=== PATIENT | female | born 1995 | race Asian ===

== ENCOUNTER 2019-04-12 11:36 | Emergency (ER) | payer OTHER ==
[~2019-04-12] VITALS: Ht 160 cm; Wt 56.7 kg
[2019-04-12 12:09] LABS: ABSOLUTE NEUTROPHILS 5.6 thou/uL (1.4-8.2); BASOPHILS 0.8 % (0.0-2.0); EOSINOPHILS 2.3 % (0.0-3.0); HEMATOCRIT 43.4 % (37.0-47.0); HEMOGLOBIN 14.9 gm/dL (12.0-15.0); LYMPHOCYTES 20.7 % (24.0-44.0); MCH 30.6 pg (26.0-34.0); MCHC 34.3 g/dL (28.0-37.0); MCV 89.2 fL (80.0-100.0); MONOCYTES 5.3 % (1.0-8.0); PLATELET COUNT 220 thou/uL (150-400); POLYS 70.9 % (36.0-66.0); RBC 4.87 mil/uL (4.20-5.00); RDW 12.5 % (10.5-14.5); WBC 7.9 thou/uL (4.0-11.0)
[2019-04-12 12:24] LABS: ANION GAP 9 mmol/L (7-16); BUN 12 mg/dL (7-18); CALCIUM 9.1 mg/dL (8.5-10.1); CHLORIDE 103 mmol/L (98-107); CO2 27 mmol/L (21-32); CREATININE 0.8 mg/dL (0.6-1.0); GLUCOSE 103 mg/dL (74-106); POTASSIUM 3.7 mmol/L (3.5-5.1); SODIUM 139 mmol/L (136-145)
[2019-04-12 12:29] LABS: SGOT 31 U/L (15-37); SGPT 22 U/L (30-65); TOTAL BILIRUBIN 0.6 mg/dL (<0.1-1.0); TOTAL PROTEIN 8.2 g/dL (6.4-8.2); TROPONIN-I <0.06 ng/mL (<0.06)
[2019-04-12 14:44] VITALS: BP 129/93
--- NOTE | 2019-04-13 08:39 | EKG ---
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1995 Requested By: Ina Madison Order Number: [id number] MD: Balaji Curran Measurements Intervals [place] Rate: 82 P: 49 TX: 135 QRS: 79 QRSD: 81 T: -1 QT: 365 QTc: 427 Interpretive Statements Sinus rhythm Normal tracing No previous ECG available for comparison Electronically Signed On 04-13-2019 8:39:47 CDT by Balaji Curran [email or web address] ��������������������������������������������� <ELECTRONICALLY SIGNED> ���������������������������������������� By: Balaji Curran MD, [facility] ��������������������������������������������� 04/13/19 0839 1152 1152 Balaji Curran MD, FACC /EPI
== END 2019-04-12 14:44 | disposition home or self-care (01) ==
LOC: ER 11:36
PROVIDERS: Emergency Medicine
DX: R07.89 Other chest pain (principal); Z87.891 Personal history of nicotine dependence